=== PATIENT | male | born 1990 | race Caucasian/White ===

== ENCOUNTER 2019-11-04 08:46 | Emergency (ER) | payer BC, SELFPAY ==
[2019-11-04 08:59] VITALS: BP 129/67; PULSE 80; RESP 18; TEMP 37.3; O2SAT 100
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
[2019-11-04] MEDS: OFLOXACIN 0.3% OTIC 5 ML 5 DROPS EAR-RIGHT (10:12)
--- NOTE | 2019-11-04 10:14 | PC.NURSE ---
Ear wick noted to be in place upon application of ear drops
== END 2019-11-04 10:14 | disposition home or self-care (01) ==
PROVIDERS: Emergency Provider Emergency Medicine; Family Provider Pediatrics
DX: H60.331 Swimmer's ear, right ear (principal)
CPT/HCPCS: 99282